=== PATIENT | female | born 1975 | race Caucasian/White ===

== ENCOUNTER 2024-08-29 15:11 | Emergency (ER) | payer MEDICAID, OTHER ==
[2024-08-29] MEDS: Acetaminophen/Codeine 300-30 MG Tab PO ONE (15:57)
[2024-08-29] MEDS: Diphtheria,Pertussis(Acell),Tetanus Vaccine 0.5 ML Syringe IM ONE (15:58)
[2024-08-29] MEDS: Lidocaine 1% 10 ML MDV INJECT ONE (17:05)
[2024-08-29] MEDS: Bacitracin Oint 1 GM U/D Packet TOP ONE ×2 (18:11→18:19)
== END 2024-08-29 18:23 | disposition home or self-care (01) ==
LOC: JP.ED 15:11
DX: S61.452A Open bite of left hand, initial encounter (principal); Z23 Encounter for immunization; Z88.0 Allergy status to penicillin; Z79.899 Other long term (current) drug therapy; W54.0XXA Bitten by dog, initial encounter
CPT/HCPCS: 12001; 12002; 73120; 90471; 90715; 99283; A9270